=== PATIENT | female | born 1955 | race Caucasian/White ===

== ENCOUNTER 2017-05-16 10:43 | Outpatient (CLI) | payer BC ==
--- NOTE | 2017-05-16 13:45 | MRI ---
MRI LUMBAR SPINE WITHOUT CONTRAST: HISTORY: M51.16. Low back pain. COMPARISON: None. FINDINGS: The aortic contour is nonaneurysmal. No retroperitoneal adenopathy. Visualized portions of the kidn eys are unremarkable. The conus medullaris terminates near the inferior end plate of L1. The background marrow signal is normal aside from type II Modic changes inferior end plate of L4 and superior end plate of L5. Multiple small hemangiomas are present in the spine. Levels are as follow: L1-2: There is circumferential disk space height loss with a circumferential disk bulge. The spinal canal measures 10 mm. No significant neural foraminal narrowing. L2-3: Mild disk desiccation. Moderate disk arthropathy. Ligamentum flavum hypertrophy. There is a low-grade left subforaminal disk bulge. There is moderate left and mild right side neural foraminal narrowing. L3-4: Circumferential disk space height loss. There is also circumferential disk protrusion. The s earl canal is 7 mm. There is moderate bilateral neural foraminal narrowing. Moderate disk arthrosi s. L4-5: Severe degenerative disk space height loss. There is a broad-based partial disk protrusion wi th a superimposed disk extrusion centrally and right paracentral. The spinal canal is narrowed to ap proximately 9 mm. There is moderate left and moderate to severe right-sided neural foraminal narrowi ng. L5-S1: Moderate to severe degenerative disk space height loss. There is 2 mm of anterolisthesis. S evere facet arthrosis. Moderate bilateral neural foraminal narrowing. 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 IMPRESSION: Multifocal spondylosis, most severe at L4-5. POS: OFF
== END 2017-05-16 10:44 | disposition home or self-care (01) ==
LOC: SCSMRI 10:43
PROVIDERS: ATTEND Chiropractor
DX: M51.16 Intervertebral disc disorders with radiculopathy, lumbar region (principal); M47.896 Other spondylosis, lumbar region
CPT/HCPCS: 72148